=== PATIENT | female | born 1960 | race Two or more races ===

== ENCOUNTER 2019-06-24 14:14 | Emergency (ER) | payer OTHER ==
[~2019-06-24] VITALS: Ht 162.6 cm; Wt 70.5 kg
[2019-06-24] MEDS ORDERED: LABETALOL HCL 100 MG/20 ML VIAL IV STA (14:45)
[2019-06-24 15:09] LABS: BASO # 0.1 10^3/uL (0.0-0.2); BASO % 0.7 % (0.0-1.0); EOS # 0.1 10^3/uL (0.0-0.5); EOS % 1.8 % (0.0-3.0); HEMATOCRIT 45.9 % (36.0-47.0); LYMPH # 3.4 10^3/uL (1.5-5.0); LYMPH % 48.4 % (24.0-44.0); MEAN CORPUSCULAR HEMOGLOBIN 29.2 pg (27.0-33.0); MEAN CORPUSCULAR HGB CONC 32.7 g/dl (32.0-36.5); MEAN CORPUSCULAR VOLUME 89.3 fl (80.0-96.0); MONO # 0.5 10^3/uL (0.0-0.8); MONO % 6.4 % (0.0-5.0); NEUTROPHILS % 42.7 % (36.0-66.0); PLATELET COUNT, AUTOMATED 286 10^3/uL (150-450); RED BLOOD COUNT 5.14 10^6/uL (4.00-5.40); WHITE BLOOD COUNT 7.1 10^3/uL (4.0-10.0)
--- NOTE | 2019-06-24 15:18 | REP ---
Two-view chest: 06/24/2019. Indication: Chest pain. Comparison: None. Findings: There is no air space consolidation, pleural effusion or pneumothorax. The cardiomediastinal silhouette is unremarkable. Impression: No acute cardiopulmonary process. Electronically Signed by Tony Gómez DO 06/24/2019 03:09 P
[2019-06-24 15:21] LABS: INR 0.98; PROTHROMBIN TIME 12.7 SECONDS (11.8-14.0)
[2019-06-24 15:22] LABS: PARTIAL THROMBOPLASTIN TIME 27.8 SECONDS (25.0-38.4)
[2019-06-24] MEDS ORDERED: hydrALAZINE INJ 20 MG/ML VIAL IV ONE (15:30)
[2019-06-24 15:39] VITALS: BP 202/96
[2019-06-24 15:40] LABS: ALBUMIN 3.9 GM/DL (3.2-5.2); ALT/SGPT 46 U/L (12-78); BILIRUBIN,DIRECT 0.2 MG/DL (0.0-0.2); BILIRUBIN,TOTAL 0.6 MG/DL (0.2-1.0); BLOOD UREA NITROGEN 19 MG/DL (7-18); CALCIUM LEVEL 9.5 MG/DL (8.5-10.1); CARBON DIOXIDE LEVEL 26 MEQ/L (21-32); CHLORIDE LEVEL 109 MEQ/L (98-107); CK-MB VALUE MASS 1.3 NG/ML (<3.6); CPK CREATINE PHOSPHOKINASE 119 U/L (26-192); FREE T4 1.46 NG/DL (0.76-1.46); GLOMERULAR FILTRATION RATE > 60.0 (>51); GLUCOSE, FASTING 88 MG/DL (70-100); LIPASE 151 U/L (73-393); MB/CK RELATIVE INDEX 1.09 (< OR =4); POTASSIUM SERUM 3.7 MEQ/L (3.5-5.1); SODIUM LEVEL 140 MEQ/L (136-145); THYROID STIMULATING HORMONE 0.736 uIU/ML (0.358-3.740); TOTAL PROTEIN 7.5 GM/DL (6.4-8.2); TROPONIN I < 0.02 NG/ML (< 0.10)
[2019-06-24 15:45] VITALS: BP 164/70
[2019-06-24] MEDS ORDERED: ISOVUE-370 76% 100ML VIAL (Q9967) As Ordered ONE ×2 (15:55→16:12)
[2019-06-24 16:47] LABS: D-DIMER QUANT 881.67 ng/ml (<500)
[2019-06-24] MEDS ORDERED: amLODIPine 5 MG TAB PO ONE (18:00)
--- NOTE | 2019-06-24 18:15 | HPEPDOC ---
General Date of Admission 06/24/19 Date of Service: Jun 24, 2019 Chief Complaint The patient is a 59-year-old female admitted with a reason for visit of Chest Pain. Source: Patient, Family History of Present Illness 59 year old female who who moved up here from [place] in march 2019 and has not seen any doctor this year went to the [facility] today for chest aminah n. She works at [employer]. She has been feeling off and on intermittent pleuritic chest pain for the past 2 days with radiation of the pain to her right arm. The pain was sharp and located in the right 3rd and 4th costochondral junctions. It was reproducible on palpation. On arrival to the ED she was noted to have Bp of 217/104. However her chest pain had already resolved with s/l nitro given by EMS. Her EKG was sinus rhythm Blood work showed a positive d dimer. She was sent for a CT angio to rule out PE. However the machine malfunctioned during the test the first time after the contrast was given so no pictures could be gotten. She was given a second dose of contrast after it was fixed and tried however it failed again so she ended up having a CT chest but no contrast in the pulmonary vasculature in proper timing so pulmonary embolism could not be ruled out. So the hospitalist was called for admission for hypertensive urgency and to rule out Pulmonary embolism by either a VQ scan or a repeat CT angio the next day. She wa given a dose of IV hydralazine in [facility] ed with control of her blood pressure. Home Medications No Active Prescriptions or Reported Meds Allergies Coded Allergies: No Known Allergies (Verified Allergy, Unknown, 06/24/19) Past Medical History Medical History none Surgical History c section x1, appendectomy Family History No family history of major medical diseases. Her parents were healthy and of old age. Social History * Smoker: Denies Alcohol: Denies Drugs: denies A-FIB/CHADSVASC A-FIB History Current/History of A-Fib/PAF?: No Review of Systems Constitutional: Denies: Chills, Fever, Night Sweats Eyes: Denies: Pain, Vision change ENT: Denies: Head Aches, Ear Pain, Dysphagia Skin: Denies: Rash, Lesions, Breakdown Pulmonary: Denies: Dyspnea, Cough Cardiovascular: Reports: Chest Pain; Denies: Palpitations, Orthopnea, Paroxysmal Noc. Dyspnea, Edema Gastrointestinal: Denies: Nausea, Vomiting, Abdominal Pain, Diarrhea Genitourinary: Denies: Dysuria, Frequency, Incontinence, Retention Musculoskeletal: Denies: Neck Pain, Back Pain, Joint Pain, Muscle Pain, Spasms Neurological: Denies: Weakness, Numbness, Change in speech, Confusion Physical Examination General Exam: Positive: Alert, Cooperative, No Acute Distress Eye Exam: Positive: PERRLA, Conjunctiva & lids normal, EOMI; Negative: Sclera icteric ENT Exam: Positive: Atraumatic, Mucous membr. moist/pink, Pharynx Normal Neck Exam: Positive: Supple; Negative: JVD, thyromegaly Chest Exam: Positive: Clear to auscultation, Normal air movement Heart Exam: Positive: Rate Normal, Regular Rhythm, Normal S1, Normal S2, Other (tenderness int he right 3rd and 4th costochondral junctions on palpation); Negative: Murmurs, Rubs Telemetry: Positive: No significant arrhythmia Abdomen Exam: Positive: Normal bowel sounds, Soft; Negative: Tenderness, Hepatospenomegaly Extremity Exam: Positive: Normal pulses; Negative: Clubbing, Cyanosis, Edema Skin Exam: Positive: Nl turgor and temperature; Negative: Breakdown, Lesion Neuro Exam: Positive: Normal Gait, Normal Speech, Cranial Nerves 3-12 NL, Reflexes 2+ Psych Exam: Positive: Mental status NL, Mood NL, Oriented x 3 Vital Signs Vital Signs Date Time Temp Pulse Resp B/P (MAP) Pulse Ox O2 Delivery O2 Flow Rate FiO2 06/24/19 15:45 164/70 (101) 06/24/19 15:44 74 99 06/24/19 14:28 97.0 18 Room Air Laboratory Data Labs 24H Laboratory Tests 2 06/24/19 14:57: Immature Granulocyte % (Auto) 0.0, Neutrophils (%) (Auto) 42.7, Lymphocytes (%) (Auto) 48.4H, Monocytes (%) (Auto) 6.4H, Eosinophils (%) (Auto) 1.8, Basophils (%) (Auto) 0.7, Neutrophils # (Auto) 3.0, Lymphocytes # (Auto) 3.4, Monocytes # (Auto) 0.5, Eosinophils # (Auto) 0.1, Basophils # (Auto) 0.1, Nucleated Red Blood Cells % (auto) 0.0, Prothrombin Time 12.7, Prothromb Time International Ratio 0.98, Activated Partial Thromboplast Time 27.8, D-Dimer, Quantitative 88 1.67H, Anion Gap 5L, Glomerular Filtration Rate > 60.0, Calcium Level 9.5, Total Bilirubin 0.6, Direct Bilirubin 0.2, Aspartate Amino Transf (AST/SGOT) 25, Alanine Aminotransferase (ALT/SGPT) 46, Alkaline Phosphatase 92, Total Creatine Kinase 119, Creatine Kinase MB 1.3, Creatine Kinase MB Relative Index 1.09, Troponin I < 0.02, Total Protein 7.5, Albumin 3.9, Albumin/Globulin Ratio 1.08, Lipase 151, Thyroid Stimulating Hormone (TSH) 0.736, Free Thyroxine 1.46 CBC/BMP Laboratory Tests 06/24/19 14:57 Assessment/Plan 59 year old female who who moved up here from [place] in march 2019 and has not seen any doctor this year went to the [place] [facility] today for chest pain. She works at [employer]. She has been feeling off and on intermittent pleuritic chest pain for the past 2 days with radiation of the pain to her right arm. The pain was sharp and located in the right 3rd and 4th costochondral junctions. It was reproducible on palpation. On arrival to the ED she was noted to have Bp of 217/104. However her chest pain had already resolved with s/l nitro given by EMS. Her EKG was sinus rhythm Blood work showed a positive d dimer. She was sent for a CT angio to rule out PE. However the machine malfunctioned during the test and good pictures could not be achieved . So pulmonary embolism could not be ruled out. So the hospitalist was called for admission for hypertensive urgency and to rule out Pulmonary embolism by either a VQ scan or a repeat CT angio the next day. She wa given a dose of IV hydralazine in the ed with control of her blood pressure. Hypertensive urgency will admit to PCU start on amlodipine. will give hydralazine prn with hold parameters. Chest pain Angina due to CAD Vs hypertensive urgency with ischemia vs pulmonary embolism vs costochondritis. will repeat cardiac markers and EKG in 6 hours. first set was negative nitroglycerine s/lprn for chest pain echo. Rule out PE either by VQ scan tomorrow am or a CT angio in 24 hours. Plan / VTE VTE Prophylaxis Ordered?: Yes KATIE TILLMAN MD Jun 24, 2019 18:15
--- NOTE | 2019-06-24 19:08 | REP ---
CT pulmonary angiogram: With IV contrast. History: Chest pain. Pleuritic right-sided pain. Comparison studies: No comparison CT study. Contrast dose: 135 ML of Isovue 370 are administered intravenously. The contrast is given in two boluses, initially 75 ml and a second bolus of 60 ml. A second bolus was necessitated by a scanner failure after the first bolus. Unfortunately, the scanner failed again after the second bolus and prompt scanning could not be accomplished. Scan acquisition is delayed and acquired after the machine was rebooted. CT technique: Helical scanning is acquired and overlapping 1.5 mm and contiguous 3 mm axial images are reformatted. In addition, maximum intensity projection and multiplanar re-formation images are generated in sagittal and coronal imaging projections. CT pulmonary angiographic findings there is poor opacification of the pulmonary arterial tree. There is no filling defects in the pulmonary arterial tree seen. There is no evidence of aortic aneurysm. There is minimal linear fibrosis in the lung bases. No pleural or pericardial effusion is seen. No hilar or mediastinal mass or adenopathy is observed. There is mild fatty infiltration of the liver. No adrenal lesion is seen. No bony destructive lesion is appreciated. Impression: Scan suboptimal for exclusion of pulmonary embolus or dissection. No aneurysm seen. No mass or adenopathy noted. No infiltrate seen. Electronically Signed by Madi Rizvi MD 06/24/2019 07:40 P
[2019-06-24] MEDS ORDERED: HEPARIN SOD (PORCINE) 5000 UNITS/ML VIAL SC SCH (21:00)
[2019-06-25] MEDS ORDERED: amLODIPine 10 MG TAB PO SCH (09:00)
--- NOTE | 2019-06-25 13:04 | ECGEPIP ---
[facility] - ED Test Date: 2019-06-24 Pat Name: BETO JUNIOR Department: Room: - Gender: Female Hand Coper: CT : 1960 Requested By: EMANI Taylor Order Number: [id number] Reading MD: Leilani Ivy Measurements Intervals [place] Rate: 61 P: 4 IL: 163 QRS: 14 QRSD: 89 T: 24 QT: 437 QTc: 442 Interpretive Statements SINUS RHYTHM DELAYED R PROGRESSION NO PRIOR Electronically Signed on 06-25-2019 13:04:33 EST by Leilani Ivy
--- NOTE | 2019-06-26 16:37 | IPNPDOC ---
Text Note Date of Service The patient was seen on 06/24/19. NOTE Within 45 mins of admission patient left AMA. I tried to explain it to her how improtant it was to stay however she said that she is now feeling better and did not want to stay overnight in the hospital. Physical exam unchanged refer to my history and physical earlier today. Discharge diagnosis: Hypertensive urgency Chest pain etiology not determined. VS,Fishbone, I+O VS, Fishbone, I+O Vital Signs Date Time Temp Pulse Resp B/P (MAP) Pulse Ox O2 Delivery O2 Flow Rate FiO2 06/24/19 15:45 164/70 (101) 06/24/19 15:44 74 99 06/24/19 14:28 97.0 18 Room Air KATIE TILLMAN MD Jun 26, 2019 16:37
== END 2019-06-24 18:14 | disposition left against medical advice (07) ==
LOC: EDBD 14:14 → M ED 14:14
DX: I10 Essential (primary) hypertension (principal); R79.1 Abnormal coagulation profile; R07.9 Chest pain, unspecified; Z53.21 Procedure and treatment not carried out due to patient leaving prior to being seen by health care provider; R07.1 Chest pain on breathing; R42 Dizziness and giddiness
CPT/HCPCS: 71046; 71275; 80048; 80076; 82550; 82553; 83690; 84439; 84443; 84484; 85025; 85379; 85610; 85730; 93005; 93041; 94760; 96374; 99285; Q9967

== ENCOUNTER 2019-06-25 12:07 | Emergency (ER) | payer OTHER ==
[~2019-06-25] VITALS: Ht 152.4 cm; Wt 69.3 kg
[2019-06-25 14:15] LABS: BLOOD UREA NITROGEN 18 MG/DL (7-18); CALCIUM LEVEL 9.3 MG/DL (8.5-10.1); CARBON DIOXIDE LEVEL 29 MEQ/L (21-32); CHLORIDE LEVEL 106 MEQ/L (98-107); CREATININE FOR GFR 0.76 MG/DL (0.55-1.30); GLOMERULAR FILTRATION RATE > 60.0 (>51); GLUCOSE, FASTING 129 MG/DL (70-100); POTASSIUM SERUM 3.8 MEQ/L (3.5-5.1); SODIUM LEVEL 141 MEQ/L (136-145)
[2019-06-25 15:20] LABS: BASO # 0.1 10^3/uL (0.0-0.2); BASO % 0.6 % (0.0-1.0); EOS % 0.3 % (0.0-3.0); HEMATOCRIT 44.1 % (36.0-47.0); HEMOGLOBIN 14.6 g/dl (12.0-15.5); LYMPH # 3.7 10^3/uL (1.5-5.0); LYMPH % 37.6 % (24.0-44.0); MEAN CORPUSCULAR HEMOGLOBIN 29.4 pg (27.0-33.0); MEAN CORPUSCULAR HGB CONC 33.1 g/dl (32.0-36.5); MEAN CORPUSCULAR VOLUME 88.9 fl (80.0-96.0); MONO # 0.7 10^3/uL (0.0-0.8); MONO % 7.6 % (0.0-5.0); NEUTROPHILS # 5.2 10^3/uL (1.5-8.5); NEUTROPHILS % 53.7 % (36.0-66.0); PLATELET COUNT, AUTOMATED 300 10^3/uL (150-450); RED BLOOD COUNT 4.96 10^6/uL (4.00-5.40); WHITE BLOOD COUNT 9.7 10^3/uL (4.0-10.0)
[2019-06-25] MEDS ORDERED: ISOVUE-370 76% 100ML VIAL (Q9967) As Ordered ONE (15:38)
[2019-06-25] MEDS ORDERED: ACETAMINOPHEN 500 MG TAB PO ONE (16:45)
[2019-06-25] MEDS ORDERED: KETOROLAC 30 MG/ML VIAL (J1885) IV ONE (17:45)
--- NOTE | 2019-06-25 19:20 | REP ---
CT pulmonary angiogram: With IV contrast. History: Shortness of breath. Chest pain. Rule out pulmonary embolus. Comparison studies: Comparison study June 24, 2019. This prior study was suboptimal because of a scanner malfunction. Contrast dose: 75 ML of Isovue [address] technique: Helical scanning is acquired and overlapping 1.5 mm and contiguous 3 mm axial images are reformatted. In addition, maximum intensity projection and multiplanar re-formation images are generated in sagittal and coronal imaging projections. CT pulmonary angiographic findings: There is good opacification in the pulmonary arterial tree. There is no CT evidence of pulmonary embolism. Thoracic aorta enhances homogeneously. No evidence of aneurysm or dissection seen. No pleural or pericardial effusion is noted. No mass or adenopathy is observed. Minimal linear fibrosis is seen in the left base. No pulmonary infiltrate or pulmonary mass lesion is seen. Impression: There is no CT evidence of pulmonary embolism. No aortic dissection or aneurysm is seen. Linear fibrosis left base. Otherwise no acute disease. Electronically Signed by Madi Rizvi MD 06/26/2019 12:36 P
[2019-06-25 19:46] VITALS: BP 158/69
--- NOTE | 2019-06-26 06:32 | ECGEPIP ---
[facility] - ED Test Date: 2019-06-25 Pat Name: BETO JUNIOR Department: Room: - Gender: Female Ice [employer]er: adali : 1960 Requested By: JEREMY VAN Order Number: [id number] Reading MD: Stevan Pacheco Measurements Intervals [place] Rate: 73 P: 62 UT: 171 QRS: 44 QRSD: 91 T: 21 QT: 394 QTc: 437 Interpretive Statements SINUS RHYTHM WITH SINUS ARRHYTHMIA MODERATE T-WAVE ABNORMALITY, CONSIDER ANTEROSEPTAL ISCHEMIA CW 06/24/[address] T CHANGES- RULE OUT ANTERIOR ISCHEMIA CLINICAL CORRELATION ADVISED Electronically Signed on 06-26-2019 6:32:32 EST by Stevan Pacheco
== END 2019-06-25 19:53 | disposition home or self-care (01) ==
LOC: M ED 12:07
DX: R51 Headache (principal); R06.02 Shortness of breath; R03.0 Elevated blood-pressure reading, without diagnosis of hypertension
CPT/HCPCS: 36415; 71275; 80048; 85025; 93005; 93041; 94760; 96374; 99285; J1885; Q9967

== ENCOUNTER → 2022-11-07 | Outpatient (CLI) | payer OTHER | LOC: M WUC 12:29 | PROVIDERS: ATTEND Student in an Organized Health Care Education/Training Program | DX: M79.641 Pain in right hand (principal); M19.041 Primary osteoarthritis, right hand ==

== ENCOUNTER 2023-05-13 15:44 | Emergency (ER) | payer OTHER ==
[~2023-05-13] VITALS: Ht 152.4 cm; Wt 70.0 kg
[2023-05-13] MEDS ORDERED: METF500T13 PO (16:20)
[2023-05-13] MEDS ORDERED: LISI20TA33 PO (16:21)
[2023-05-13] MEDS ORDERED: ISOVUE-370 76% 100ML VIAL As Ordered ONE (16:41)
[2023-05-13 16:45] VITALS: BP 196/86; TEMP 96.9; O2SAT 97
[2023-05-13 16:48] LABS: BASO # 0.1 10^3/uL (0.0-0.2); BASO % 0.6 % (0.0-1.0); EOS # 0.2 10^3/uL (0.0-0.5); EOS % 1.8 % (0.0-3.0); HEMATOCRIT 46.6 % (36.0-47.0); HEMOGLOBIN 15.9 g/dl (12.0-15.5); LYMPH # 4.2 10^3/uL (1.5-5.0); MEAN CORPUSCULAR HEMOGLOBIN 29.9 pg (27.0-33.0); MEAN CORPUSCULAR HGB CONC 34.1 g/dl (32.0-36.5); MEAN CORPUSCULAR VOLUME 87.6 fl (80.0-96.0); MONO # 0.6 10^3/uL (0.0-0.8); MONO % 5.5 % (2.0-8.0); NEUTROPHILS # 5.1 10^3/uL (1.5-8.5); NEUTROPHILS % 50.8 % (36.0-66.0); PLATELET COUNT, AUTOMATED 323 10^3/uL (150-450); RED BLOOD COUNT 5.32 10^6/uL (4.00-5.40); WHITE BLOOD COUNT 10.1 10^3/uL (4.0-10.0)
[2023-05-13 17:03] LABS: INR 0.94; PROTHROMBIN TIME 12.3 SECONDS (12.5-14.5)
[2023-05-13 17:04] LABS: PARTIAL THROMBOPLASTIN TIME 26.5 SECONDS (24.8-34.2)
[2023-05-13 17:08] LABS: ERYTHROCYTE SEDIMENTATION RATE 40 mm/hr (0-30)
[2023-05-13 17:15] LABS: BLOOD UREA NITROGEN 16 MG/DL (9-23); CALCIUM LEVEL 9.9 MG/DL (8.3-10.6); CARBON DIOXIDE LEVEL 28 MMOL/L (20-31); CHLORIDE LEVEL 103 MMOL/L (98-107); GLOMERULAR FILTRATION RATE > 60.0 (>45); GLUCOSE, FASTING 126 MG/DL (74-106); POTASSIUM SERUM 4.2 MMOL/L (3.5-5.1); SODIUM LEVEL 139 MMOL/L (136-145)
[2023-05-13 17:28] LABS: ALBUMIN 3.3 G/DL (3.2-5.2); ALKALINE PHOSPHATASE 73 U/L (46-116); ALT/SGPT 42 U/L (7.0-40); AST/SGOT 26 U/L (<34); BILIRUBIN,DIRECT < 0.1 MG/DL (<0.4); BILIRUBIN,TOTAL 0.3 MG/DL (0.3-1.2); TOTAL PROTEIN 6.5 G/DL (5.7-8.2)
[2023-05-13] MEDS ORDERED: predniSONE 20 MG TAB PO ONE (17:55)
[2023-05-13] MEDS ORDERED: PRED20TA PO (17:57)
[2023-05-13 18:15] VITALS: BP 123/69; O2SAT 97
[2023-05-13 18:29] VITALS: TEMP 96.5
== END 2023-05-13 18:34 | disposition home or self-care (01) ==
LOC: M ED 15:44
DX: R51.9 Headache, unspecified (principal); M31.6 Other giant cell arteritis; R70.0 Elevated erythrocyte sedimentation rate; I25.2 Old myocardial infarction; E11.9 Type 2 diabetes mellitus without complications; I10 Essential (primary) hypertension; Z88.6 Allergy status to analgesic agent; Z88.5 Allergy status to narcotic agent; Z79.811 Long term (current) use of aromatase inhibitors; Z79.4 Long term (current) use of insulin; Z79.52 Long term (current) use of systemic steroids
CPT/HCPCS: 36415; 70450; 70496; 70498; 71045; 80047; 80048; 80076; 85025; 85610; 85652; 85730; 93005; 93041; 94760; 99284; J7512; Q9967

== ENCOUNTER → 2023-05-29 | Outpatient (REF) | payer OTHER ==
[~2023-05-29] MED LIST: LISI20TA33 PO; METF500T13 PO; PRED20TA PO
== END ==
LOC: M LAB REF 16:32
PROVIDERS: ATTEND Surgery
DX: I77.6 Arteritis, unspecified (principal)